=== PATIENT | male | born 1955 | race Caucasian/White ===

== ENCOUNTER → 2017-12-04 | Outpatient (CLI) | payer OTHER ==
[~2017-12-04] MED LIST: ACC10 PO; AMLO-110 PO; ASPCH81 PO; CYAN10005 PO; EZET10TA63 PO; FLX10 PO; GABA-113 PO; GABA800T PO; OXYC1TAB3 PO; PANT40TA PO; SIMV80TA2 PO; [UNRECOGNIZED DRUG - OTHER] PO
--- NOTE | 2017-12-04 15:26 | DIAGNOSTIC IMAGING REPORT ---
THORACOLUMBAR SPINE 2 VIEWS CLINICAL HISTORY: CHECK CATHETER, PUMP IMPLANTED tube position COMPARISON STUDY: None FINDINGS: Infusion catheter enters the L2-3 lumbar spine level and extends superiorly to the level of the superior endplate of T9. The catheter appears to be intact. IMPRESSION: Infusion catheter enters the lumbar spine level at L2-L3 and subsequently extends superiorly to the superior endplate of T9 The above report was generated using voice recognition software. It may contain grammatical, syntax or spelling errors. Electronically signed by: Michael Higgins M.D. 12/04/2017 3:24 PM Dictated Date/Time: 12/04/2017 3:23 PM
== END | disposition home or self-care (01) ==
LOC: C.RADBC 14:51
PROVIDERS: ATTEND Physician Assistant Medical
DX: Z45.1 Encounter for adjustment and management of infusion pump (principal)

== ENCOUNTER → 2018-01-20 | Day surgery (SDC) | payer OTHER ==
[2018-01-06 12:08] VITALS: Ht 180.3 cm; Wt 72.3 kg
[2018-01-06 14:15] LABS: BASO % 0.4 %; BASO ABS # 0.04 K/uL (0-0.2); EOS ABS # 0.43 K/uL (0-0.5); HEMATOCRIT 41.7 % (42-52); HEMOGLOBIN 14.7 g/dL (14.0-18.0); IG# 0.02 K/uL (0.00-0.02); LYMPH ABS # 2.97 K/uL (1.2-3.4); MEAN CELL VOLUME 84.8 fL (80-100); MEAN CORPUSCULAR HEMOGLOBIN 29.9 pg (25-34); MEAN CORPUSCULAR HGB CONC 35.3 g/dl (32-36); MEAN PLATELET VOLUME 11.4 fL (7.4-10.4); MONO % 4.4 %; MONO ABS # 0.47 K/uL (0.11-0.59); NEUT ABS # 6.69 K/uL (1.4-6.5); PLATELET COUNT 207 K/uL (130-400); RED CELL DISTRIBUTION WIDTH CV 13.2 % (11.5-14.5); RED CELL DISTRIBUTION WIDTH SD 40.9 fL (36.4-46.3); WHITE BLOOD COUNT 10.62 K/uL (4.8-10.8)
[2018-01-06 14:29] LABS: CALCIUM 8.8 mg/dl (8.5-10.1); CREATININE 0.79 mg/dl (0.60-1.40); POTASSIUM 4.5 mmol/L (3.5-5.1)
[~2018-01-20] VITALS: Ht 180.3 cm; Wt 72.3 kg
[~2018-01-20] MED LIST changes: -ACC10 PO; +ALPR-411 PO; -ASPCH81 PO; +ASPI-435 PO; +ATOR-24 PO; +ATROPINE SULFATE 0.1 MG/ML 5ML SYR IV PRN; +BACITRACIN 50000 UNIT VIAL ONE; +BUPIVACAINE 0.25% 30 ML VIAL ONE; +CHOL1000 PO; +CLINDAMYCIN IV 900 MG in DEXTROSE 5% 50ML 50 ML IV SCH; +DEXAMETHASONE SOD INJ 4 MG/ML VIAL ONE; -EZET10TA63 PO; +EpHEDrine SULFATE INJ 50 MG/ML AMP IV PRN; +EpINEphrine INJ 1MG/ML AMP 1 MG/ML AMP ONE; +FENTANYL CITRATE INJ 50 MCG/1 ML 2 ML VIAL IV PRN; +FENTANYL CITRATE INJ 50 MCG/1 ML 2 ML VIAL ONE; -FLX10 PO; -GABA800T PO; +GLC/500 PO; +HYDROCODONE/ACETAMIN 5/325MG TAB PO PRN; +HYDROmorphone INJ 1 MG/ML SYR IV PRN; +HYDROmorphone INJ 2 MG/ML SYR/VIAL IV PRN; +LABETALOL HCL IV 5 MG/ML 20ML IV PRN; +LACTATED RINGER'S 1000ML 1,000 ML IV SCH; +LIDOCAINE 2%/EPINEPHRINE 1:100,000 1.8 ML CARTRIDGE ONE; +LIDOCAINE HCL 2% 2 ML VIAL (20MG/ML) ONE; +MEPERIDINE HCL 25 MG/ML CARP IV PRN; +MIDAZOLAM HCL 1 MG/ML 2ML VIAL ONE; +NEOMYCIN/POLYMYX/BACITR OINT 15 GM TUBE ONE; +ONDANSETRON INJ 2 MG/ML 2 ML VIAL IV PRN; +ONDANSETRON INJ 2 MG/ML 2 ML VIAL ONE; -OXYC1TAB3 PO; +PHENYLEPHRINE 100MCG/ML 5ML SYR IV PRN; +POTACAP PO; +POVIDONE-IODINE OP SOLN 30 ML BTL ONE; +PROPOFOL IV EMULSION 10 MG/ML 20 ML VIAL ONE; +QUIN20TA30 PO; +SILDENAFIL PO; -SIMV80TA2 PO; -[UNRECOGNIZED DRUG - OTHER] PO
[2018-01-20 10:17] VITALS: BP 155/78; PULSE 71; TEMP 36.8; O2SAT 98
--- NOTE | 2018-01-20 11:52 | History & Physical Bridge Note ---
H&P Re-Evaluation Bridge Note: I have examined the patient, reviewed the History & Physical and in the interval since the performance of the History & Physical I have noted the following changes of clinical significance: No changes noted
--- NOTE | 2018-01-20 12:42 | Discharge Instructions ---
Discharge Instructions Date of Service January 20, 2018. Visit Reason for Visit: End-Of-Life Intrathecal Drug Administration System Discharge Discharge Diagnosis / Problem: same Discharge Goals Goal(s): Decrease discomfort, Increase independence, Improve disease control Activity Recommendations Activity Limitations: as noted below Lifting Limitations: no more than 10 pounds, until after follow-up appointment Exercise/Sports Limitations: until after follow-up appointment May Resume Sexual Activity: after follow-up appointment Shower/Bathe: may shower/bathe in 3 days, keep incision dry Driving or Machine Use: resume 3 days after discharge Must wear abdominal binder at all times for 4 weeks after the surgery. Make sure it is "snug" over the pump incision site. No hot tub bathing or swimming for 4 weeks Please change the incision dressing daily, looking for redness/swelling/ drainage. Do not remove the purple skin tape dressing. It will fall off on it's own. Please return to the [facility] for a wound check in 2 weeks. Please call and schedule an appointment. Anesthesia . Post Anesthesia Instructions: If you have had General Anesthesia or IV Sedation: * Do not drive today. * Resume driving when surgeon permits. * Do not make important decisions or sign legal documents today. * Call surgeon for: 1. Temperature elevations greater than 101 degrees F. 2. Uncontrollable pain. 3. Excessive bleeding. 4. Persistent nausea and vomiting. 5. Medication intolerance (nausea, vomiting or rash). * For nausea and vomiting use only clear liquids such as: tea, soda, bouillon until nausea subsides, then gradually increase diet as tolerated. * If you have any concerns or questions, call your surgeon's office. If physician is unavailable and it is an emergency, call 911 or go to the nearest emergency room. . Diet Recommendations Recommended Home Diet: no limitations Procedures Procedures Performed: Replacement intrathecal pump, catheter access port study, analysis and re-programming of intrathecal pump Pending Studies Studies pending at discharge: no Medical Emergencies . Who to Call and When: Medical Emergencies: If at any time you feel your situation is an emergency, please call 911 immediately. . Non-Emergent Contact Non-Emergency issues call your: Director Business Travel Call Non-Emergent contact if: you have a fever, your pain is not controlled, your pain is worsening, your pain is unusual for you, your pain is concerning you, wound has increased drainage, wound has increased redness, wound has increased pain, you have any medication questions . Past History Medical & Surgical History: (1) Coronary artery disease (2) Gastroesophageal reflux disease (3) Diabetes mellitus (4) Hypercholesterolemia (5) Lumbar postlaminectomy syndrome (6) HTN (hypertension) (7) History of heart artery stent (8) H/O prostatectomy (9) History of lumbar surgery . "Provider Documentation" section prepared by Noemi Díaz. .
--- NOTE | 2018-01-20 14:12 | [facility] Post Operative Brief Note ---
Immediate Operative Summary Operative Date January 20, 2018. Pre-Operative Diagnosis End of Life of Intrathecal Pump Post-Operative Diagnosis End of Life of Intrathecal Pump Procedure(s) Performed Replacement of Intrathecal Drug Administration System, Revision of Intrathecal Catheter Surgeon Dr Díaz Chairman Surgeon(s) None Estimated Blood Loss 5cc Findings Consistent with Post-Op Diagnosis Specimens A: Intrathecal Pump and Catheter Segment Drains None Anesthesia Type General Complication(s) none Disposition Accompanied Pt To Recover: no Disposition: Recovery Room / PACU
--- NOTE | 2018-01-20 14:26 | Operative Note-Pain Management ---
Pain Clinic Operative Note PROCEDURE PERFORMED: Intrathecal pump replacement, catheter access port study, pump interrogation, reprogramming, and analysis. PREOPERATIVE DIAGNOSIS: end of life intrathecal pump POSTOPERATIVE DIAGNOSIS: Same. COMPLICATIONS: None. SURGEON: Dr. Noemi Díaz. ANESTHESIA: General. MATERIAL FORWARDED TO THE LAB: None. INDICATIONS: The patient had an end of life pump thus requiring replacement. The patient was explained the risks, benefits, alternatives of the procedure and agreed to proceed as above. Informed consent was obtained and witnessed. A time out was performed after the patient was brought into the Operating Room. Antibiotics were given. The patient was then induced with general anesthesia without complications and was placed in the supine position. The skin was prepped with duraprep and betadine and draped in sterile fashion. The existing pump was identified and using a scalpel, electrocautery, and blunt dissection, the existing pump was exposed. The four retaining sutures were removed and the old pump was explanted. While the old pump was being explanted from the pocket , the catheter was inadvertently cut and subsequently repaired using a catheter revision kit. The newly implanted catheter length is 98.2cm. Free flowing CSF was noted from the revised catheter. The new pump was opened and prepared according to [employer] standards. Fresh pump medication was placed into the new pump. The pump catheter was secured to the new pump according to [employer] standards. The catheter access port was accessed and revealed free flowing CSF. Next, the pocket was irrigated with 3 bulb syringes full of sterile normal saline with aqueous iodophor. Hemostasis was achieved. The new pump was placed into the pocket in the 12 O'clock position. The intrathecal pump was anchored in the pocket with 4 0 Prolene sutures. No complications were noted after the intrathecal pump was placed inside the pocket. The skin and subcutaneous tissues was closed with 0-antibiotic coated strata fix then 3-O antibiotic coated stratafix and then Prineo dermabond dressing without complications. The skin was cleansed and dried and 4 x 4's and Tegaderms were placed for closure dressings. No complications were noted throughout the procedure. The patient tolerated the procedure and general anesthesia well and was extubated at the end of the procedure. The patient was then transferred back to the [facility] and was taken to the recovery room in stable condition. The patient will follow up with our clinic within 7 and 14 days for a wound check. No changes were made to the pump dosing regimen. Pump size inserted: 20ml Medication placed in pump: Morphine 10 mg/mL I attest to the content of the Intraoperative Record and any orders documented therein. Any exceptions are noted below.
--- NOTE | 2018-01-20 14:55 | Anesthesiology Progress Note ---
Anesthesia Post Op Note Date & Time January 20, 2018 at 14:54 Vital Signs Pain Intensity: 0 Vital Signs Past 12 Hours Date Time Temp Pulse Resp B/P (MAP) Pulse Ox O2 Delivery O2 Flow Rate FiO2 01/20/18 14:45 79 16 131/73 97 Oxymask 10 01/20/18 14:37 37.2 80 16 141/79 97 Oxymask 10 01/20/18 10:17 36.8 71 18 155/78 (103) 98 Notes Mental Status: alert / awake / arousable, participated in evaluation Pt Amnestic to Procedure: Yes Nausea / Vomiting: adequately controlled Pain: adequately controlled Airway Patency, RR, SpO2: stable & adequate BP & HR: stable & adequate Hydration State: stable & adequate Anesthetic Complications: no major complications apparent
[2018-01-20 15:22] VITALS: BP 137/70; PULSE 80; TEMP 37.3; O2SAT 94
[2018-01-20 15:52] VITALS: BP 139/61; PULSE 77; TEMP 37.3; O2SAT 92
== END | disposition home or self-care (01) ==
LOC: C.ACU 09:40
PROVIDERS: ATTEND Anesthesiology
DX: Z46.2 Encounter for fitting and adjustment of other devices related to nervous system and special senses (principal); M96.1 Postlaminectomy syndrome, not elsewhere classified; E11.9 Type 2 diabetes mellitus without complications; K21.9 Gastro-esophageal reflux disease without esophagitis; E78.00 Pure hypercholesterolemia, unspecified; I25.10 Atherosclerotic heart disease of native coronary artery without angina pectoris; Z85.46 Personal history of malignant neoplasm of prostate; I10 Essential (primary) hypertension; Z90.89 Acquired absence of other organs; Z79.82 Long term (current) use of aspirin; Z79.899 Other long term (current) drug therapy